=== PATIENT | male | born 1955 | race Caucasian/White ===

== ENCOUNTER 2021-02-14 21:37 | Emergency (ER) | payer MEDICARE, OTHER ==
[~2021-02-14 21:37] MED LIST: ABILIFY10 MG PO; AMBIEN CR 12.12.5 MG PO; AMBIEN10 MG PO; BENZTROPINE MESY1 MG PO; BREO ELLIPTA 11 EACH PO; CLONAZEPAM 0.50.5 MG PO; COREG12.5 MG PO; COREG25 MG PO; CYMBALTA 30MG C30 MG PO; LEVAQUIN500 MG PO; LISINOPRIL 20MG20 MG PO; LISINOPRIL40 MG PO; METRONIDAZOLE500 MG PO; MINIPRES1 MG PO; NORCO 5-325 TA1 EACH PO; PERCOCET 10-321 EACH PO; PRAVASTATIN SOD10 MG PO; SEROQUEL 100MG100 MG PO; VERAPAMIL ER120 M1 PO; ZOLPIDEM 10MG T10 MG PO
[2021-02-14 23:13] LABS: BASOPHIL 0 % (0-2); EOSINOPHIL 3.8 % (0-7); HCT 38.3 % (42.0-52.0); HGB 12.5 g/dl (13.2-18.0); LYMPHOCYTE 19.4 % (15-48); MCH 33.1 pg (25.0-31.0); MCHC 32.6 g/dL (32.0-36.0); MCV 101.3 fL (78.0-100.0); MONOCYTE 8.1 % (0-12); MPV 8.6 fL (6.0-9.5); NRBC 0; PLT 240 K/uL (150-400); RBC 3.78 M/uL (4.70-6.00); RDW 16.2 % (11.5-14.0); WBC 7.4 K/uL (4.0-10.5)
[2021-02-14 23:41] LABS: ALBUMIN 3.3 g/dL (3.4-5.0); BILIRUBIN - TOTAL 0.5 mg/dL (0.2-1.0); BUN/CREAT RATIO (CALC) 21.4 RATIO; CREATININE 0.98 mg/dL (0.67-1.17); GLOBULIN (CALCULATION) 3.4 g/dL; POTASSIUM 3.5 mmol/L (3.5-5.1); TOTAL PROTEIN 6.7 g/dL (6.4-8.2)
[2021-02-14 23:46] LABS: PRO-BNP 341 pg/mL (<125)
[2021-02-15] MEDS ORDERED: DOXYCYCLINE MO100 MG PO (01:02)
== END 2021-02-15 01:15 | disposition home or self-care (01) ==
LOC: FER 21:37
PROVIDERS: Emergency Medicine
DX: L03.116 Cellulitis of left lower limb (principal); L03.115 Cellulitis of right lower limb; I87.8 Other specified disorders of veins; I11.0 Hypertensive heart disease with heart failure; I50.9 Heart failure, unspecified; J44.9 Chronic obstructive pulmonary disease, unspecified; E78.5 Hyperlipidemia, unspecified
CPT/HCPCS: 36415; 36600; 71045; 80053; 82803; 83880; 84484; 85025; 93005

== ENCOUNTER 2021-03-25 13:51 | Inpatient (IN) | payer MEDICARE, OTHER ==
[~2021-03-25] VITALS: Ht 190.5 cm; Wt 118.4 kg
[~2021-03-25 13:51] MED LIST changes: +DOXYCYCLINE MO100 MG PO
[2021-03-25 14:49] LABS: BILIRUBIN NEGATIVE (NEGATIVE); BLOOD NEGATIVE Ery/uL (NEGATIVE); CLARITY CLEAR (CLEAR); COLOR YELLOW (YELLOW); GLUCOSE (U) NORMAL (NORMAL); LEUKOCYTES NEGATIVE Leu/uL (NEGATIVE); NITRITE NEGATIVE (NEGATIVE); PROTEIN NEGATIVE (NEGATIVE); UROBILINOGEN 0.2 mg/dL (0.2-1.0)
[2021-03-25 15:27] LABS: BASOPHIL 0.1 % (0-2); EOSINOPHIL 2.1 % (0-7); HGB 14.8 g/dl (13.2-18.0); LYMPHOCYTE 17.4 % (15-48); MCH 32.7 pg (25.0-31.0); MCHC 33.6 g/dL (32.0-36.0); MCV 97.1 fL (78.0-100.0); MONOCYTE 7.2 % (0-12); MPV 9.1 fL (6.0-9.5); NEUTROPHIL 72.8 % (41-80); NRBC 0; PLT 241 K/uL (150-400); RBC 4.53 M/uL (4.70-6.00); RDW 14.1 % (11.5-14.0); WBC 8.1 K/uL (4.0-10.5)
[2021-03-25 16:09] LABS: LACTIC ACID 1.9 mmol/L (0.4-1.9)
[2021-03-25 16:26] LABS: CORONAVIRUS 2019 SARS-COV-2 NEGATIVE (NEGATIVE); INFLUENZA A NAA NEGATIVE (NEGATIVE)
[2021-03-25 16:27] LABS: ALBUMIN 3.1 g/dL (3.4-5.0); BILIRUBIN - TOTAL 0.6 mg/dL (0.2-1.0); BUN/CREAT RATIO (CALC) 25.4 RATIO; CREATININE 1.14 mg/dL (0.67-1.17); GLOBULIN (CALCULATION) 3.4 g/dL; TOTAL PROTEIN 6.5 g/dL (6.4-8.2)
[2021-03-25 16:28] LABS: PRO-BNP 129 pg/mL (<125)
[2021-03-25 16:31] LABS: POTASSIUM 2.1 mmol/L (3.5-5.1)
[2021-03-25 20:18] LABS: BUN/CREAT RATIO (CALC) 25.7 RATIO; CREATININE 1.13 mg/dL (0.67-1.17)
[2021-03-25 20:20] LABS: POTASSIUM 2.4 mmol/L (3.5-5.1)
[2021-03-26] MEDS ORDERED: DEMADEX20 MG PO (05:26)
[2021-03-26] MEDS ORDERED: PRAMIPEXOLE DI1.5 MG PO (05:28)
[2021-03-26] MEDS ORDERED: METOLAZONE 5MG T5 M1 PO (05:29)
[2021-03-26] MEDS ORDERED: ASPIRIN EC81 M1 PO (05:31)
[2021-03-26] MEDS ORDERED: FLUOXETINE HCL20 MG PO (05:33)
[2021-03-26] MEDS ORDERED: LAMOTRIGINE200 MG PO (05:34)
[2021-03-26] MEDS ORDERED: ATORVASTATIN CA40 MG PO (05:38)
[2021-03-26] MEDS ORDERED: OMEPRAZOLE 20MG20 MG PO (05:40)
[2021-03-26 07:27] LABS: HCT 42.1 % (42.0-52.0); HGB 13.9 g/dl (13.2-18.0); MCH 32.6 pg (25.0-31.0); MCV 98.6 fL (78.0-100.0); MPV 8.9 fL (6.0-9.5); RBC 4.27 M/uL (4.70-6.00); RDW 14.3 % (11.5-14.0)
[2021-03-26 08:00] LABS: ALBUMIN 3.1 g/dL (3.4-5.0); BILIRUBIN - TOTAL 0.7 mg/dL (0.2-1.0); BUN/CREAT RATIO (CALC) 23.3 RATIO; CREATININE 0.9 mg/dL (0.67-1.17); GLOBULIN (CALCULATION) 2.8 g/dL; MAGNESIUM 2.6 mg/dL (1.8-2.4); POTASSIUM 2.6 mmol/L (3.5-5.1); TOTAL PROTEIN 5.9 g/dL (6.4-8.2)
--- NOTE | 2021-03-26 10:05 | NUR ---
03/26/21 Please consider full admit or discharge.
[2021-03-26] MEDS ORDERED: TORSEMIDE20 MG PO (10:35)
[2021-03-26] MEDS ORDERED: NEURONTIN300 MG PO (10:43)
[2021-03-26] MEDS ORDERED: ASPIRIN EC81 MG PO (10:43)
[2021-03-26] MEDS ORDERED: ZYPREXA 5MG TABL5 MG PO (10:44)
[2021-03-26] MEDS ORDERED: POTASSIUM CHLO20 ME1 PO (10:45)
[2021-03-26] MEDS ORDERED: ZOFRAN4 M1 PO (10:46)
[2021-03-26] MEDS ORDERED: VASCULERA630 MG PO (10:47)
[2021-03-26] MEDS ORDERED: PERCOCET 10-321 EACH PO (10:48)
[2021-03-26] MEDS ORDERED: COREG25 MG PO ×2 (10:51→10:55)
[2021-03-27 06:37] LABS: BASOPHIL 0.1 % (0-2); EOSINOPHIL 3.5 % (0-7); HCT 46.6 % (42.0-52.0); HGB 14.9 g/dl (13.2-18.0); LYMPHOCYTE 22.4 % (15-48); MCH 31.9 pg (25.0-31.0); MCV 99.8 fL (78.0-100.0); MONOCYTE 8.8 % (0-12); MPV 8.9 fL (6.0-9.5); NEUTROPHIL 64.6 % (41-80); NRBC 0; PLT 255 K/uL (150-400); RBC 4.67 M/uL (4.70-6.00); RDW 14.5 % (11.5-14.0); WBC 8.6 K/uL (4.0-10.5)
[2021-03-27 07:07] LABS: BUN/CREAT RATIO (CALC) 14.4 RATIO; CREATININE 1.04 mg/dL (0.67-1.17); POTASSIUM 3.2 mmol/L (3.5-5.1)
[2021-03-28 06:25] LABS: HCT 48.6 % (42.0-52.0); HGB 15.8 g/dl (13.2-18.0); MCH 32.2 pg (25.0-31.0); MCHC 32.5 g/dL (32.0-36.0); MPV 8.8 fL (6.0-9.5); RBC 4.91 M/uL (4.70-6.00); RDW 14.2 % (11.5-14.0); WBC 8.8 K/uL (4.0-10.5)
[2021-03-28 06:55] LABS: BUN/CREAT RATIO (CALC) 18.4 RATIO; C-REACTIVE PROTEIN 0.8 mg/dL (<=0.90); CREATININE 1.36 mg/dL (0.67-1.17); MAGNESIUM 1.8 mg/dL (1.8-2.4); POTASSIUM 2.6 mmol/L (3.5-5.1)
[2021-03-29 07:11] LABS: BASOPHIL 0.1 % (0-2); EOSINOPHIL 4.2 % (0-7); HCT 47.5 % (42.0-52.0); HGB 15.8 g/dl (13.2-18.0); LYMPHOCYTE 17.2 % (15-48); MCH 32.2 pg (25.0-31.0); MCHC 33.3 g/dL (32.0-36.0); MCV 96.7 fL (78.0-100.0); MONOCYTE 8.7 % (0-12); MPV 9.3 fL (6.0-9.5); NEUTROPHIL 68.9 % (41-80); NRBC 0; PLT 246 K/uL (150-400); RBC 4.91 M/uL (4.70-6.00); RDW 13.8 % (11.5-14.0)
[2021-03-29 07:36] LABS: BUN/CREAT RATIO (CALC) 22.1 RATIO; C-REACTIVE PROTEIN 0.7 mg/dL (<=0.90); CREATININE 1.22 mg/dL (0.67-1.17); MAGNESIUM 2.2 mg/dL (1.8-2.4); VANCOMYCIN, TROUGH 18.4 ug/mL (10-20)
[2021-03-29 07:42] LABS: POTASSIUM 2.3 mmol/L (3.5-5.1)
--- NOTE | 2021-03-29 15:10 | NUR ---
03/29/21 Mr. Iraheta lives with his son and [id number]. He has a cane, pulse-ox, 02 at 3 liter, and portable tanks. According to Mr. Iraheta, Dr. Chairez has ordered him an Indogen. - Mr. Iraheta will require IV antibiotics after discharge. A referral was made to [facility] and [facility] per patient choice; affliation explained. - Waiting on return call from [facility] re: cost.
--- NOTE | 2021-03-29 16:57 | NUR ---
03/29/21 1615 [facility] ORDERED FOR PATIENT TO GET IV ANTIBIOTICS AT HOME BY [facility]. PROCEDURE EXPLAINED TO PATIENT. PT PREPPED AND DRAPED IN STERILE FASHION. THE PT'S LEFT UPPER ARM BASILIC VEIN WAS VIAUALIZED USING THE [email or web address] US MACHINE. A 21 GAUGE GUIDE NEEDLE WAS USED. GOOD BLOOD RETURN WAS NOTED. THE GUIDE WIRE THREADED ASILY. THE NEEDLE WAS REMOVED AND THE MIDLINE CATHETER WAS PLACED OVER THE WIRE. THE WIRE AND SHEATH WERE REMOVED. GOOD BLOOD RETURN WAS NOTED. A CONNECTOR WAS FLUSHED AND PLACED OVER THE END OF THE CATHETER. AT STAT LOCK WAS PLACED ON THE CATHETER AND A BIOPATCH WAS PLACED ON TOP OF THE INSERTION SITE. A STERILE TEGADERM WAS PLACED OVER THE MIDLINE CATHETER. GOOD FOR 29 DAYS. THIS IS NOT A CENTRAL LINE. REPORT WAS GIVEN TO IRINEO TABOR R.N. ON MED/SURG. THE PATIENT TOLERATED TJE PROCEDURE WELL. PT'S BED WAS LOWERED TO THE GROUND, SIDERAILS UP X 2, CALL LIGHT WITHIN REACH.
[2021-03-29 17:20] LABS: BUN/CREAT RATIO (CALC) 21.3 RATIO; CREATININE 1.27 mg/dL (0.67-1.17); POTASSIUM 2.5 mmol/L (3.5-5.1)
[2021-03-30 07:41] LABS: BUN/CREAT RATIO (CALC) 26.8 RATIO; CREATININE 1.12 mg/dL (0.67-1.17)
[2021-03-30] MEDS ORDERED: AUGMENTIN 875-1 EACH PO (10:42)
--- NOTE | 2021-03-30 13:20 | NUR ---
03/30/21 IV antibiotic home infusion has been arranged through [facility]. Patient was informed of his cost of $136.00 a week and is in agreement. [facility] is on diversion. [facility] accepted patient. Family informed. - Report given to Dr. Thompson and MS Nanette RN.
== END 2021-03-30 15:06 | disposition home health service (06) | DRG 871 ==
LOC: FER 13:51 → FMS 19:44
PROVIDERS: Emergency Medicine; Internal Medicine Cardiovascular Disease; Nurse Practitioner; ADMIT Internal Medicine
PROC: 05HY33Z Insertion of Infusion Device into Upper Vein, Percutaneous Approach (ICD-10-PCS; principal; 2021-03-29)
DX: A41.9 Sepsis, unspecified organism (principal); J96.21 Acute and chronic respiratory failure with hypoxia; G93.41 Metabolic encephalopathy; L03.116 Cellulitis of left lower limb; R65.20 Severe sepsis without septic shock; B35.6 Tinea cruris; G47.33 Obstructive sleep apnea (adult) (pediatric); J43.9 Emphysema, unspecified; J84.10 Pulmonary fibrosis, unspecified; Z20.822 Contact with and (suspected) exposure to COVID-19; K21.9 Gastro-esophageal reflux disease without esophagitis; G89.29 Other chronic pain; M54.9 Dorsalgia, unspecified; F03.90 Unspecified dementia, unspecified severity, without behavioral disturbance, psychotic disturbance, mood disturbance, and anxiety; I10 Essential (primary) hypertension; E78.5 Hyperlipidemia, unspecified; E87.6 Hypokalemia; E87.70 Fluid overload, unspecified; F32.9 Major depressive disorder, single episode, unspecified; I87.8 Other specified disorders of veins; I73.9 Peripheral vascular disease, unspecified; I71.9 Aortic aneurysm of unspecified site, without rupture; Z99.81 Dependence on supplemental oxygen; Z87.891 Personal history of nicotine dependence; Z90.49 Acquired absence of other specified parts of digestive tract; Z90.89 Acquired absence of other organs; Z98.890 Other specified postprocedural states
CPT/HCPCS: 36415; 36600; 70450; 71045; 71046; 71260; 72100; 73020; 80048; 80053; 80202; 81003; 82150; 82803; 83036; 83605; 83735; 83880; 84145; 84484; 85025; 86140; 87040; 87088; 93005; 93970; 94760; 97162; 97166; 97530; 97530-GP; 97535; C1751; G0378; J1642; J1650; J2543; J2930; J3370; J3475; J7040; J7050; Q9967; U0002

== ENCOUNTER 2021-04-25 21:04 | Day surgery (SDCO) | payer MEDICARE, OTHER ==
[~2021-04-25] VITALS: Ht 175.3 cm; Wt 120.2 kg
[~2021-04-25 21:04] MED LIST changes: +ASPIRIN EC81 M1 PO; +ASPIRIN EC81 MG PO; +ATORVASTATIN CA40 MG PO; +AUGMENTIN 875-1 EACH PO; +DEMADEX20 MG PO; +FLUOXETINE HCL20 MG PO; +LAMOTRIGINE200 MG PO; +METOLAZONE 5MG T5 M1 PO; +NEURONTIN300 MG PO; +OMEPRAZOLE 20MG20 MG PO; +POTASSIUM CHLO20 ME1 PO; +PRAMIPEXOLE DI1.5 MG PO; +TORSEMIDE20 MG PO; +VASCULERA630 MG PO; +ZOFRAN4 M1 PO; +ZYPREXA 5MG TABL5 MG PO
[2021-04-25 23:56] LABS: BASOPHIL 0.1 % (0-2); EOSINOPHIL 1.8 % (0-7); HCT 45.1 % (42.0-52.0); HGB 14.9 g/dl (13.2-18.0); LYMPHOCYTE 15.1 % (15-48); MCH 31.7 pg (25.0-31.0); MONOCYTE 7.5 % (0-12); NEUTROPHIL 74.9 % (41-80); NRBC 0; PLT 309 K/uL (150-400); RDW 14.2 % (11.5-14.0); WBC 12.3 K/uL (4.0-10.5)
[2021-04-26 00:11] LABS: BUN/CREAT RATIO (CALC) 27.4 RATIO; CREATININE 0.95 mg/dL (0.67-1.17)
[2021-04-26 00:21] LABS: POTASSIUM 2.4 mmol/L (3.5-5.1)
[2021-04-26] MEDS ORDERED: ELIQUIS5 MG PO (16:44)
[2021-04-26 17:10] LABS: BUN/CREAT RATIO (CALC) 20.5 RATIO; CREATININE 0.78 mg/dL (0.67-1.17); POTASSIUM 3.5 mmol/L (3.5-5.1)
[2021-04-26] MEDS ORDERED: K-DUR20 MEQ PO (17:29)
--- NOTE | 2021-04-27 15:15 | NUR ---
Patient was reported to be stating he was leaving AMA. The ED physician discharge patient with an rx for Eliquis before inquiry was made re: insurance coverage.
--- NOTE | 2021-04-27 15:20 | NUR ---
ADVISED BY TATIANA VÁSQUEZ, THAT PT. NEEDED A PREAUTH FOR HIS ELIQUIS AND THAT HE WAS DC FROM THE ED 04/27/21. FAHAD STATED THAT THE PT CALLED ALEKSANDRA BRYANT AND TOLD HER THAT HE DID NOT GET HIS ELIQUIS IT NEEDED A PREAUTH. TC TO MR. MARTINEZ AT . HE ADVISED THAT HE WAS DISCHARGED BY DR. DELEON IN THE ED ON 04/26/21 HE NEEDED A PREAUTH. MR. MARTINEZ STATED THAT DR. DELEON WOULD NOT DO THE PREAUTH PT. HAD ALREADY LEFT AND IT WAS NOT AN EMERGENCY AND THAT HE NEEDED TO SEE HIS PRIMARY PHYSICIAN. TC TO [facility]. MANNY EXPLAINED THAT DR. DELEON SIGNED THE SCRIPT AND I NEEDED A DOCTOR TO PLACE ON THE AUTHORIZATION REQUEST. MANNY CALLED BACK AND STATED THAT DR. CHELA CROSS ADVISED THAT WE COULD USE HIS NAME FOR THE AUTHORIZATION . TC TO [employer] TO GET THE DRUG COVERAGE INFORMATION. SUBMITTED THE REQUEST FOR PREAUTH THROUGH [facility].
--- NOTE | 2021-04-27 16:50 | NUR ---
TC TO LINDA GUAJARDO, [facility] STATD THAT PT KAROLYN DID NOT REQUIRE A PREAUTH, THE COPAY IS $235.00 THIS IS DUE TO PT NOT MEETING HIS DECUCTIBLE. TC TO Adelita JUAN. ADVISED HIM OF THE INFORMATION FROM [facility]. [facility]. TC TO MANNY ADVISED HER OF THE ABOVE INFORMATION.
== END 2021-04-26 17:57 | disposition home or self-care (01) ==
LOC: FER 21:04 → FOFB 04-26 05:48
PROVIDERS: Internal Medicine; Nurse Practitioner Family; ADMIT Internal Medicine
DX: M86.9 Osteomyelitis, unspecified (principal); M84.475A Pathological fracture, left foot, initial encounter for fracture; I10 Essential (primary) hypertension; I26.99 Other pulmonary embolism without acute cor pulmonale; J43.9 Emphysema, unspecified; J98.11 Atelectasis; I25.10 Atherosclerotic heart disease of native coronary artery without angina pectoris; E78.5 Hyperlipidemia, unspecified; K76.0 Fatty (change of) liver, not elsewhere classified; G47.33 Obstructive sleep apnea (adult) (pediatric); K21.9 Gastro-esophageal reflux disease without esophagitis; K57.90 Diverticulosis of intestine, part unspecified, without perforation or abscess without bleeding; R19.7 Diarrhea, unspecified; F32.9 Major depressive disorder, single episode, unspecified; M54.9 Dorsalgia, unspecified; G89.29 Other chronic pain; Z20.822 Contact with and (suspected) exposure to COVID-19; Z86.79 Personal history of other diseases of the circulatory system; Z90.49 Acquired absence of other specified parts of digestive tract; Z87.891 Personal history of nicotine dependence
CPT/HCPCS: 36415; 71275; 73630; 73700; 80048; 83880; 84484; 85025; 85379; 93005; 93970; 96372; G0378; J0713; J1170; J1650; J2405; J3370; J3475; J3480; J7030; J7050; Q9967; U0002

== ENCOUNTER 2021-06-05 19:28 | Emergency (ER) | payer MEDICARE, OTHER ==
[~2021-06-05 19:28] MED LIST changes: +ELIQUIS5 MG PO; +K-DUR20 MEQ PO
[2021-06-05 20:00] LABS: BASOPHIL 0.2 % (0-2); EOSINOPHIL 3.7 % (0-7); HCT 40.7 % (42.0-52.0); HGB 12.6 g/dl (13.2-18.0); LYMPHOCYTE 22.2 % (15-48); MONOCYTE 8.5 % (0-12); MPV 8.7 fL (6.0-9.5); NEUTROPHIL 64.8 % (41-80); NRBC 0; PLT 299 K/uL (150-400); RBC 4.07 M/uL (4.70-6.00); RDW 16.5 % (11.5-14.0); WBC 8.1 K/uL (4.0-10.5)
[2021-06-05 20:15] LABS: BUN/CREAT RATIO (CALC) 15.7 RATIO; CREATININE 0.89 mg/dL (0.67-1.17); MAGNESIUM 2.3 mg/dL (1.8-2.4); PHOSPHORUS 2.4 mg/dL (2.6-4.7); POTASSIUM 4.3 mmol/L (3.5-5.1)
[2021-06-05 20:25] LABS: PRO-BNP 204 pg/mL (<125)
[2021-06-05] MEDS ORDERED: BACTRIM DS TAB1 EACH PO (21:23)
== END 2021-06-05 21:56 | disposition home or self-care (01) ==
LOC: FER 19:28
PROVIDERS: Emergency Medicine
DX: I11.0 Hypertensive heart disease with heart failure (principal); I50.9 Heart failure, unspecified; M79.675 Pain in left toe(s); R60.0 Localized edema; I25.10 Atherosclerotic heart disease of native coronary artery without angina pectoris
CPT/HCPCS: 36415; 71045; 73560; 73630; 80048; 83735; 83880; 84100; 84484; 85025; 93005; J1940

== ENCOUNTER 2021-07-09 01:38 | Inpatient (IN) | payer MEDICARE, OTHER ==
[~2021-07-09] VITALS: Ht 175 cm; Wt 120.2 kg
[~2021-07-09 01:38] MED LIST changes: +BACTRIM DS TAB1 EACH PO; +LAMICTAL (BLUE)25 MG PO; +METFORMIN HCL500 MG PO; +OXYCODONE HCL10 MG PO; +STIOLTO INHALER INH
[2021-07-09 01:52] LABS: BASOPHIL 0.2 % (0-2); EOSINOPHIL 0 % (0-7); HCT 39.6 % (42.0-52.0); HGB 12.7 g/dl (13.2-18.0); LYMPHOCYTE 7.4 % (15-48); MCH 30.9 pg (25.0-31.0); MCHC 32.1 g/dL (32.0-36.0); MCV 96.4 fL (78.0-100.0); MPV 9.6 fL (6.0-9.5); NEUTROPHIL 80.2 % (41-80); NRBC 0; PLT 333 K/uL (150-400); RBC 4.11 M/uL (4.70-6.00); RDW 14.8 % (11.5-14.0); WBC 11.5 K/uL (4.0-10.5)
[2021-07-09 02:14] LABS: ALBUMIN 2.4 g/dL (3.4-5.0); BILIRUBIN - TOTAL 0.4 mg/dL (0.2-1.0); BUN/CREAT RATIO (CALC) 34.6 RATIO; CREATININE 1.04 mg/dL (0.67-1.17); GLOBULIN (CALCULATION) 3.6 g/dL; POTASSIUM 4.2 mmol/L (3.5-5.1)
[2021-07-09 02:32] LABS: PRO-BNP 395 pg/mL (<125)
[2021-07-09 04:34] LABS: C-REACTIVE PROTEIN 0.2 mg/dL (<=0.90); MAGNESIUM 2.2 mg/dL (1.8-2.4)
[2021-07-10 04:20] LABS: BASOPHIL 0.4 % (0-2); EOSINOPHIL 0 % (0-7); HCT 38.7 % (42.0-52.0); HGB 12.3 g/dl (13.2-18.0); LYMPHOCYTE 5.5 % (15-48); MCH 30.9 pg (25.0-31.0); MCHC 31.8 g/dL (32.0-36.0); MCV 97.2 fL (78.0-100.0); MONOCYTE 6.5 % (0-12); MPV 9.7 fL (6.0-9.5); NRBC 0; PLT 345 K/uL (150-400); RBC 3.98 M/uL (4.70-6.00); RDW 14.7 % (11.5-14.0); WBC 14.8 K/uL (4.0-10.5)
[2021-07-10 04:30] LABS: NEUTROPHIL 81.9 % (41-80)
[2021-07-10 05:31] LABS: BUN/CREAT RATIO (CALC) 31.9 RATIO; CREATININE 0.94 mg/dL (0.67-1.17); MAGNESIUM 2.3 mg/dL (1.8-2.4); POTASSIUM 4.7 mmol/L (3.5-5.1)
[2021-07-11 05:59] LABS: BASOPHIL 0.5 % (0-2); EOSINOPHIL 0.1 % (0-7); HCT 40.2 % (42.0-52.0); HGB 12.7 g/dl (13.2-18.0); LYMPHOCYTE 6.3 % (15-48); MCH 30.9 pg (25.0-31.0); MCHC 31.6 g/dL (32.0-36.0); MCV 97.8 fL (78.0-100.0); MPV 9.9 fL (6.0-9.5); NRBC 0.1; PLT 355 K/uL (150-400); RBC 4.11 M/uL (4.70-6.00); RDW 14.9 % (11.5-14.0)
[2021-07-11 06:39] LABS: ALBUMIN 2.4 g/dL (3.4-5.0); BILIRUBIN - TOTAL 0.4 mg/dL (0.2-1.0); BUN/CREAT RATIO (CALC) 35.1 RATIO; CREATININE 0.97 mg/dL (0.67-1.17); GLOBULIN (CALCULATION) 3.6 g/dL
--- NOTE | 2021-07-11 14:09 | NUR ---
07/11/21 Mr. Iraheta lives at home with son, the son's GF, and her 8 y/o. [facility] has been notified of admission via [facility]. He has a cane and 02 at 5 L oximizer. Mr. Iraheta reported that the concentrator at home would only go to 4L. [facility] reports that the concentrator went up to 5L. However, they will trade out the concentrator with one that goes to 10 L.
[2021-07-11] MEDS ORDERED: ELIQUIS5 MG PO (14:54)
== END 2021-07-11 16:40 | disposition home health service (06) | DRG 871 ==
LOC: FER 01:38 → FTCU 03:02
PROVIDERS: Emergency Medicine; Internal Medicine; Nurse Practitioner; ADMIT Internal Medicine
PROC: 8E0ZXY6 Isolation (ICD-10-PCS; principal; 2021-07-09)
PROC: XW033E5 Introduction of Remdesivir Anti-infective into Peripheral Vein, Percutaneous Approach, New Technology Group 5 (ICD-10-PCS; 2021-07-09)
PROC: XW0DXM6 Introduction of Baricitinib into Mouth and Pharynx, External Approach, New Technology Group 6 (ICD-10-PCS; 2021-07-09)
DX: A41.89 Other specified sepsis (principal); U07.1 COVID-19; J12.82 Pneumonia due to coronavirus disease 2019; J96.21 Acute and chronic respiratory failure with hypoxia; J96.02 Acute respiratory failure with hypercapnia; J15.9 Unspecified bacterial pneumonia; J44.0 Chronic obstructive pulmonary disease with (acute) lower respiratory infection; E11.9 Type 2 diabetes mellitus without complications; I11.0 Hypertensive heart disease with heart failure; I50.9 Heart failure, unspecified; G47.33 Obstructive sleep apnea (adult) (pediatric); E78.5 Hyperlipidemia, unspecified; G89.29 Other chronic pain; K21.9 Gastro-esophageal reflux disease without esophagitis; F39 Unspecified mood [affective] disorder; Z79.84 Long term (current) use of oral hypoglycemic drugs; Z79.01 Long term (current) use of anticoagulants; Z79.82 Long term (current) use of aspirin; Z79.899 Other long term (current) drug therapy; Z86.718 Personal history of other venous thrombosis and embolism; Z90.49 Acquired absence of other specified parts of digestive tract; Z90.89 Acquired absence of other organs; Z98.890 Other specified postprocedural states; Y95 Nosocomial condition; Z87.891 Personal history of nicotine dependence; Z80.0 Family history of malignant neoplasm of digestive organs; Z82.49 Family history of ischemic heart disease and other diseases of the circulatory system
CPT/HCPCS: 36415; 36600; 71045; 71275; 80048; 80053; 80202; 82728; 82803; 82962; 83605; 83615; 83735; 83880; 84145; 84484; 85025; 85379; 86140; 93005; 94010; 94640; C9399; J1100; J2543; J3370; J7030; J7050; Q9967; U0002

== ENCOUNTER 2021-08-16 12:18 | Emergency (ER) | payer MEDICARE, OTHER | END 2021-08-16 13:58 | disposition left against medical advice (07) | LOC: FER 12:18 | DX: L08.9 Local infection of the skin and subcutaneous tissue, unspecified (principal); Z53.21 Procedure and treatment not carried out due to patient leaving prior to being seen by health care provider ==

== ENCOUNTER 2021-10-23 00:21 | Inpatient (IN) | payer MEDICARE, OTHER ==
[~2021-10-23] VITALS: Ht 175.3 cm; Wt 129.0 kg
[2021-10-23 00:44] LABS: BASOPHIL 0.1 % (0-2); EOSINOPHIL 0.5 % (0-7); HCT 38.6 % (42.0-52.0); HGB 11.7 g/dl (13.2-18.0); LYMPHOCYTE 10.3 % (15-48); MCH 28.7 pg (25.0-31.0); MCHC 30.3 g/dL (32.0-36.0); MCV 94.8 fL (78.0-100.0); MONOCYTE 7.4 % (0-12); MPV 9.3 fL (6.0-9.5); NEUTROPHIL 81.2 % (41-80); NRBC 0.1; PLT 358 K/uL (150-400); RBC 4.07 M/uL (4.70-6.00); RDW 18.1 % (11.5-14.0); WBC 14.2 K/uL (4.0-10.5)
[2021-10-23 00:55] LABS: INR 1.78 (0.9-1.2); PROTHROMBIN TIME 19.9 SECONDS (11.8-13.4)
[2021-10-23 00:56] LABS: PTT 39.3 SECONDS (24.4-34.7)
[2021-10-23 01:05] LABS: ALBUMIN 3.2 g/dL (3.4-5.0); BILIRUBIN - TOTAL 0.5 mg/dL (0.2-1.0); BUN/CREAT RATIO (CALC) 32.2 RATIO; CREATININE 1.21 mg/dL (0.67-1.17); POTASSIUM 4.3 mmol/L (3.5-5.1); TOTAL PROTEIN 7.2 g/dL (6.4-8.2)
[2021-10-23 01:14] LABS: LACTIC ACID 2.1 mmol/L (0.4-1.9)
[2021-10-23 01:20] LABS: CORONAVIRUS 2019 SARS-COV-2 NEGATIVE (NEGATIVE); INFLUENZA A NAA NEGATIVE (NEGATIVE)
[2021-10-23] MEDS ORDERED: METFORMIN HCL500 MG PO (07:29)
[2021-10-23] MEDS ORDERED: XARELTO15 MG PO ×2 (07:30)
[2021-10-23] MEDS ORDERED: PROZAC20 MG PO (07:31)
[2021-10-23] MEDS ORDERED: MINIPRESS5 MG PO (07:31)
[2021-10-23] MEDS ORDERED: ALDACTONE50 MG PO (07:32)
[2021-10-23] MEDS ORDERED: LAMICTAL100 MG PO (07:32)
[2021-10-23] MEDS ORDERED: MAG-OXIDE 400M400 MG PO (07:33)
[2021-10-23] MEDS ORDERED: PRILOSEC20 MG PO (07:33)
[2021-10-23] MEDS ORDERED: LYRICA 50MG CAP50 MG PO (07:34)
[2021-10-23] MEDS ORDERED: [UNRECOGNIZED DRUG - MIXTURE] (16:22)
[2021-10-24 06:06] LABS: BASOPHIL 0.1 % (0-2); EOSINOPHIL 0.1 % (0-7); HCT 34.4 % (42.0-52.0); HGB 10.5 g/dl (13.2-18.0); LYMPHOCYTE 5.2 % (15-48); MCH 28.6 pg (25.0-31.0); MCHC 30.5 g/dL (32.0-36.0); MCV 93.7 fL (78.0-100.0); MONOCYTE 3.7 % (0-12); MPV 9.5 fL (6.0-9.5); NRBC 0; PLT 332 K/uL (150-400); RBC 3.67 M/uL (4.70-6.00); RDW 17.7 % (11.5-14.0); WBC 12.2 K/uL (4.0-10.5)
[2021-10-24 06:22] LABS: NEUTROPHIL 90.2 % (41-80)
[2021-10-24 06:35] LABS: C-REACTIVE PROTEIN 3.6 mg/dL (<=0.90); MAGNESIUM 2.3 mg/dL (1.8-2.4); PHOSPHORUS 3.4 mg/dL (2.6-4.7); POTASSIUM 4.3 mmol/L (3.5-5.1)
--- NOTE | 2021-10-24 12:51 | NUR ---
patient triggered for nutrition screen 2' MST of 5. H&P denies wt loss or issues with p.o. intake. no wt loss noted in review of EMR visits; patient eating 100%. nutrition services not warranted at this time.
--- NOTE | 2021-10-24 17:26 | NUR ---
10/24/21 Mr. Iraheta and his son share a home together. He has home 02 at 3 L, portables, and a cane from [facility]. Indira Pires, [facility] is PCP. [facility] is current and have been notified of admission via [email or web address].
[2021-10-25 06:01] LABS: BASOPHIL 0.1 % (0-2); EOSINOPHIL 0 % (0-7); HCT 34.6 % (42.0-52.0); HGB 10.5 g/dl (13.2-18.0); LYMPHOCYTE 5.4 % (15-48); MCH 28.6 pg (25.0-31.0); MCHC 30.3 g/dL (32.0-36.0); MCV 94.3 fL (78.0-100.0); MONOCYTE 3.8 % (0-12); MPV 9.3 fL (6.0-9.5); NEUTROPHIL 89.7 % (41-80); NRBC 0; PLT 351 K/uL (150-400); RBC 3.67 M/uL (4.70-6.00); RDW 17.3 % (11.5-14.0); RETICULOCYTE COUNT 3.3 % (1.0-2.0); WBC 13.9 K/uL (4.0-10.5)
[2021-10-25 06:26] LABS: IRON % SATURATION 6.5 %SAT (20-50)
[2021-10-25 07:04] LABS: BUN/CREAT RATIO (CALC) 29.9 RATIO; C-REACTIVE PROTEIN 0.7 mg/dL (<=0.90); CREATININE 0.97 mg/dL (0.67-1.17); FOLIC ACID (SERUM) 11.9 ng/mL (8.6-58.9); POTASSIUM 4.7 mmol/L (3.5-5.1)
[2021-10-26 06:20] LABS: BASOPHIL 0.1 % (0-2); EOSINOPHIL 0 % (0-7); HCT 36.1 % (42.0-52.0); HGB 10.9 g/dl (13.2-18.0); LYMPHOCYTE 6.1 % (15-48); MCH 28.1 pg (25.0-31.0); MCHC 30.2 g/dL (32.0-36.0); MONOCYTE 4.2 % (0-12); MPV 9.4 fL (6.0-9.5); NEUTROPHIL 88.4 % (41-80); NRBC 0; PLT 345 K/uL (150-400); RBC 3.88 M/uL (4.70-6.00); RDW 17.1 % (11.5-14.0); WBC 10.2 K/uL (4.0-10.5)
[2021-10-26 07:03] LABS: BUN 42 mg/dL (7-18); BUN/CREAT RATIO (CALC) 38.5 RATIO; CHLORIDE 90 mmol/L (98-107); CO2 (BICARBONATE) 28 mmol/L (21-32); CREATININE 1.09 mg/dL (0.67-1.17); GLUCOSE 399 mg/dL (74-106); POTASSIUM 4.6 mmol/L (3.5-5.1)
[2021-10-26 07:04] LABS: C-REACTIVE PROTEIN < 0.20 mg/dL (<=0.90)
[2021-10-27 05:58] LABS: BASOPHIL 0.2 % (0-2); EOSINOPHIL 0 % (0-7); HCT 37.7 % (42.0-52.0); HGB 11.6 g/dl (13.2-18.0); LYMPHOCYTE 8.2 % (15-48); MCH 28.5 pg (25.0-31.0); MCHC 30.8 g/dL (32.0-36.0); MCV 92.6 fL (78.0-100.0); MONOCYTE 4.8 % (0-12); MPV 9.2 fL (6.0-9.5); NEUTROPHIL 83.7 % (41-80); NRBC 0; PLT 358 K/uL (150-400); RBC 4.07 M/uL (4.70-6.00); RDW 16.7 % (11.5-14.0); WBC 11.1 K/uL (4.0-10.5)
[2021-10-27 06:31] LABS: BUN/CREAT RATIO (CALC) 33.3 RATIO; CREATININE 1.35 mg/dL (0.67-1.17); POTASSIUM 4.1 mmol/L (3.5-5.1)
[2021-10-27] MEDS ORDERED: SPIRIVA 18MCG18 MCG INH (09:29)
[2021-10-27] MEDS ORDERED: VENTOLIN HFA IN18 GM INH (09:29)
[2021-10-27] MEDS ORDERED: PREDNISONE 20MG20 MG PO (09:29)
[2021-10-27] MEDS ORDERED: AUGMENTIN 500-1 EACH PO (09:29)
[2021-10-27] MEDS ORDERED: SYMBICORT 80-10.2 GM INH (09:29)
[2021-10-27] MEDS ORDERED: POTASSIUM CHLO20 ME1 PO (09:29)
[2021-10-27] MEDS ORDERED: FLORANEX TABLE1 EACH PO (09:29)
[2021-10-27] MEDS ORDERED: XARELTO15 MG PO (09:29)
--- NOTE | 2021-10-27 15:48 | NUR ---
10/27 [facility] was notified of discharge.
== END 2021-10-27 11:30 | disposition home or self-care (01) | DRG 871 ==
LOC: FER 00:21 → FTCU 05:39
PROVIDERS: Family Medicine; Internal Medicine; ADMIT Internal Medicine
DX: A41.9 Sepsis, unspecified organism (principal); J18.0 Bronchopneumonia, unspecified organism; J96.21 Acute and chronic respiratory failure with hypoxia; I50.33 Acute on chronic diastolic (congestive) heart failure; J44.1 Chronic obstructive pulmonary disease with (acute) exacerbation; J44.0 Chronic obstructive pulmonary disease with (acute) lower respiratory infection; N17.9 Acute kidney failure, unspecified; E87.1 Hypo-osmolality and hyponatremia; K56.7 Ileus, unspecified; Z68.41 Body mass index [BMI] 40.0-44.9, adult; R65.20 Severe sepsis without septic shock; Z20.822 Contact with and (suspected) exposure to COVID-19; E66.01 Morbid (severe) obesity due to excess calories; I11.0 Hypertensive heart disease with heart failure; E78.5 Hyperlipidemia, unspecified; G47.33 Obstructive sleep apnea (adult) (pediatric); K21.9 Gastro-esophageal reflux disease without esophagitis; F32.A Depression, unspecified; F41.9 Anxiety disorder, unspecified; E11.9 Type 2 diabetes mellitus without complications; I25.10 Atherosclerotic heart disease of native coronary artery without angina pectoris; Z86.16 Personal history of COVID-19; Z99.81 Dependence on supplemental oxygen; Z79.01 Long term (current) use of anticoagulants; Z79.82 Long term (current) use of aspirin; Z79.84 Long term (current) use of oral hypoglycemic drugs; Z79.899 Other long term (current) drug therapy; Z90.49 Acquired absence of other specified parts of digestive tract; Z89.422 Acquired absence of other left toe(s); Z87.891 Personal history of nicotine dependence; Z80.0 Family history of malignant neoplasm of digestive organs
CPT/HCPCS: 36415; 36600; 71045; 71275; 80048; 80053; 82607; 82746; 82803; 82962; 83036; 83540; 83550; 83605; 83735; 83880; 84100; 84145; 84484; 85025; 85610; 85730; 86140; 87040; 93005; 94010; 94640; 94668; 94760; 94762; J1100; J1815; J1940; J2405; J2543; J2920; J2930; J3360; J7030; J7512; Q9967; U0002

== ENCOUNTER 2021-11-11 11:58 | Day surgery (SDCO) | payer MEDICARE, OTHER ==
[~2021-11-11] VITALS: Ht 175.3 cm; Wt 127.2 kg
[~2021-11-11 11:58] MED LIST changes: +ALDACTONE50 MG PO; +AUGMENTIN 500-1 EACH PO; +FLORANEX TABLE1 EACH PO; +LAMICTAL100 MG PO; +LYRICA 50MG CAP50 MG PO; +MAG-OXIDE 400M400 MG PO; +MINIPRESS5 MG PO; +PREDNISONE 20MG20 MG PO; +PRILOSEC20 MG PO; +PROZAC20 MG PO; +SPIRIVA 18MCG18 MCG INH; +SYMBICORT 80-10.2 GM INH; +VENTOLIN HFA IN18 GM INH; +XARELTO15 MG PO; +[UNRECOGNIZED DRUG - MIXTURE]
[2021-11-11 13:24] LABS: BASOPHIL 0 % (0-2); EOSINOPHIL 1.1 % (0-7); HCT 34.4 % (42.0-52.0); HGB 10.6 g/dl (13.2-18.0); LYMPHOCYTE 12.4 % (15-48); MCH 27.8 pg (25.0-31.0); MCHC 30.8 g/dL (32.0-36.0); MCV 90.3 fL (78.0-100.0); MONOCYTE 6.9 % (0-12); MPV 9.2 fL (6.0-9.5); NEUTROPHIL 78.8 % (41-80); NRBC 0; PLT 319 K/uL (150-400); RBC 3.81 M/uL (4.70-6.00); RDW 17.4 % (11.5-14.0); WBC 8.7 K/uL (4.0-10.5)
[2021-11-11 13:29] LABS: INR 2.48 (0.9-1.2); PROTHROMBIN TIME 25.9 SECONDS (11.8-13.4); PTT 33.3 SECONDS (24.4-34.7)
[2021-11-11 13:35] LABS: IRON % SATURATION 7.7 %SAT (20-50)
[2021-11-11 13:42] LABS: ALBUMIN 3.5 g/dL (3.4-5.0); BILIRUBIN - TOTAL 0.5 mg/dL (0.2-1.0); CREATININE 1.15 mg/dL (0.67-1.17); GLOBULIN (CALCULATION) 3.8 g/dL; MAGNESIUM 2.2 mg/dL (1.8-2.4); POTASSIUM 3.8 mmol/L (3.5-5.1); TOTAL PROTEIN 7.3 g/dL (6.4-8.2)
[2021-11-11 13:44] LABS: LACTIC ACID 3.1 mmol/L (0.4-1.9)
[2021-11-11 14:02] LABS: BILIRUBIN NEGATIVE (NEGATIVE); BLOOD NEGATIVE Ery/uL (NEGATIVE); CLARITY CLEAR (CLEAR); COLOR YELLOW (YELLOW); GLUCOSE (U) NORMAL (NORMAL); LEUKOCYTES NEGATIVE Leu/uL (NEGATIVE); NITRITE NEGATIVE (NEGATIVE); PROTEIN NEGATIVE (NEGATIVE); UROBILINOGEN 0.2 mg/dL (0.2-1.0); pH 5.5 (5.0-9.0)
[2021-11-12 05:41] LABS: BASOPHIL 0.1 % (0-2); EOSINOPHIL 1.8 % (0-7); HCT 31.6 % (42.0-52.0); HGB 9.7 g/dl (13.2-18.0); LYMPHOCYTE 14.6 % (15-48); MCH 27.6 pg (25.0-31.0); MCHC 30.7 g/dL (32.0-36.0); MCV 89.8 fL (78.0-100.0); MONOCYTE 7.9 % (0-12); MPV 9.3 fL (6.0-9.5); NRBC 0; PLT 264 K/uL (150-400); RBC 3.52 M/uL (4.70-6.00); RDW 17.3 % (11.5-14.0); WBC 8.3 K/uL (4.0-10.5)
[2021-11-12 06:03] LABS: BUN/CREAT RATIO (CALC) 25.5 RATIO; CREATININE 0.98 mg/dL (0.67-1.17); POTASSIUM 3.2 mmol/L (3.5-5.1)
--- NOTE | 2021-11-12 11:06 | NUR ---
11/12/21 Please consider discharge or full admit. Thank You.
[2021-11-13 05:44] LABS: BASOPHIL 0.1 % (0-2); EOSINOPHIL 2.3 % (0-7); HCT 35.3 % (42.0-52.0); HGB 10.6 g/dl (13.2-18.0); MCH 27.3 pg (25.0-31.0); MONOCYTE 7.8 % (0-12); MPV 8.8 fL (6.0-9.5); NEUTROPHIL 71.8 % (41-80); NRBC 0; PLT 280 K/uL (150-400); RBC 3.88 M/uL (4.70-6.00); RDW 17.5 % (11.5-14.0)
[2021-11-13 06:00] LABS: BUN/CREAT RATIO (CALC) 17.2 RATIO; CREATININE 0.99 mg/dL (0.67-1.17); POTASSIUM 4.3 mmol/L (3.5-5.1)
[2021-11-13] MEDS ORDERED: FOLIC ACID1 MG PO (10:45)
[2021-11-13] MEDS ORDERED: POTASSIUM CHLO20 ME1 PO (10:45)
[2021-11-13] MEDS ORDERED: MAG-OXIDE 400M400 MG PO (10:45)
== END 2021-11-13 11:45 | disposition home or self-care (01) ==
LOC: FER 11:58 → FTCU 16:51
PROVIDERS: Emergency Medicine; ADMIT Family Medicine
DX: R55 Syncope and collapse (principal); E79.0 Hyperuricemia without signs of inflammatory arthritis and tophaceous disease; R25.2 Cramp and spasm; E11.22 Type 2 diabetes mellitus with diabetic chronic kidney disease; N18.2 Chronic kidney disease, stage 2 (mild); E87.1 Hypo-osmolality and hyponatremia; D53.9 Nutritional anemia, unspecified; I50.9 Heart failure, unspecified; J44.9 Chronic obstructive pulmonary disease, unspecified; E61.1 Iron deficiency; Z20.822 Contact with and (suspected) exposure to COVID-19
CPT/HCPCS: 36415; 70450; 80048; 80053; 81003; 82962; 83540; 83550; 83605; 83735; 83880; 84145; 84439; 84443; 85025; 85379; 85610; 85730; 93005; 94010; 94640; 97166; 97530; G0378; J2916; J3360; J7030; U0002

== ENCOUNTER 2022-01-16 22:06 | Emergency (ER) | payer MEDICARE, OTHER ==
[~2022-01-16 22:06] MED LIST changes: +FOLIC ACID1 MG PO
[2022-01-16 23:17] LABS: BASOPHIL 0.2 % (0-2); EOSINOPHIL 1.5 % (0-7); HCT 34.6 % (42.0-52.0); HGB 10.5 g/dl (13.2-18.0); LYMPHOCYTE 11.5 % (15-48); MCH 28.4 pg (25.0-31.0); MCHC 30.3 g/dL (32.0-36.0); MCV 93.5 fL (78.0-100.0); MPV 8.9 fL (6.0-9.5); NEUTROPHIL 76.7 % (41-80); NRBC 0.3; PLT 365 K/uL (150-400); RDW 21.8 % (11.5-14.0); WBC 11.8 K/uL (4.0-10.5)
[2022-01-16 23:46] LABS: ALBUMIN 3.5 g/dL (3.4-5.0); BILIRUBIN - TOTAL 0.4 mg/dL (0.2-1.0); CREATININE 1.45 mg/dL (0.67-1.17); GLOBULIN (CALCULATION) 3.5 g/dL
[2022-01-17 00:09] LABS: CORONAVIRUS 2019 SARS-COV-2 NEGATIVE (NEGATIVE); INFLUENZA A NAA NEGATIVE (NEGATIVE)
[2022-01-17 00:38] LABS: BILIRUBIN NEGATIVE (NEGATIVE); BLOOD NEGATIVE Ery/uL (NEGATIVE); CLARITY CLEAR (CLEAR); COLOR YELLOW (YELLOW); GLUCOSE (U) NORMAL (NORMAL); LEUKOCYTES NEGATIVE Leu/uL (NEGATIVE); NITRITE NEGATIVE (NEGATIVE); PROTEIN NEGATIVE (NEGATIVE); UROBILINOGEN 0.2 mg/dL (0.2-1.0)
[2022-01-17 05:24] LABS: BUN/CREAT RATIO (CALC) 39.8 RATIO; CREATININE 0.93 mg/dL (0.67-1.17); POTASSIUM 3.1 mmol/L (3.5-5.1)
== END 2022-01-17 06:05 | disposition home or self-care (01) ==
LOC: FER 22:06
PROVIDERS: Emergency Medicine
DX: R55 Syncope and collapse (principal); E86.0 Dehydration; I11.0 Hypertensive heart disease with heart failure; I50.9 Heart failure, unspecified; J44.9 Chronic obstructive pulmonary disease, unspecified; E11.9 Type 2 diabetes mellitus without complications; Z20.822 Contact with and (suspected) exposure to COVID-19; Z28.310 Unvaccinated for COVID-19
CPT/HCPCS: 36415; 70450; 71250; 72125; 72128; 72131; 80048; 80053; 81003; 83880; 84145; 84484; 85025; 93005; J3480; J7030; U0002

== ENCOUNTER 2022-01-27 11:34 | Inpatient (IN) | payer MEDICARE, OTHER ==
[~2022-01-27] VITALS: Ht 175.3 cm; Wt 124.9 kg
[2022-01-27 12:11] LABS: BASOPHIL 0.1 % (0-2); EOSINOPHIL 1.8 % (0-7); HCT 35.4 % (42.0-52.0); HGB 10.8 g/dl (13.2-18.0); LYMPHOCYTE 9.7 % (15-48); MCH 29.3 pg (25.0-31.0); MCHC 30.5 g/dL (32.0-36.0); MCV 95.9 fL (78.0-100.0); MONOCYTE 6.6 % (0-12); NEUTROPHIL 80.6 % (41-80); NRBC 0; PLT 338 K/uL (150-400); RBC 3.69 M/uL (4.70-6.00); RDW 22.2 % (11.5-14.0); WBC 8.9 K/uL (4.0-10.5)
[2022-01-27 12:31] LABS: LACTIC ACID 2.8 mmol/L (0.4-1.9)
[2022-01-27 12:36] LABS: ALBUMIN 2.8 g/dL (3.4-5.0); BILIRUBIN - TOTAL 0.6 mg/dL (0.2-1.0); BUN/CREAT RATIO (CALC) 25.2 RATIO; CREATININE 1.51 mg/dL (0.67-1.17); GLOBULIN (CALCULATION) 4.1 g/dL; POTASSIUM 4.1 mmol/L (3.5-5.1); TOTAL PROTEIN 6.9 g/dL (6.4-8.2)
[2022-01-27 12:55] LABS: CORONAVIRUS 2019 SARS-COV-2 NEGATIVE (NEGATIVE); INFLUENZA A NAA NEGATIVE (NEGATIVE)
[2022-01-27 15:48] LABS: BILIRUBIN NEGATIVE (NEGATIVE); BLOOD NEGATIVE Ery/uL (NEGATIVE); CLARITY CLEAR (CLEAR); COLOR YELLOW (YELLOW); GLUCOSE (U) NORMAL (NORMAL); LEUKOCYTES NEGATIVE Leu/uL (NEGATIVE); NITRITE NEGATIVE (NEGATIVE); PROTEIN NEGATIVE (NEGATIVE); UROBILINOGEN 0.2 mg/dL (0.2-1.0); pH 6.5 (5.0-9.0)
[2022-01-27] MEDS ORDERED: FLEXERIL5 MG PO (16:19)
[2022-01-27] MEDS ORDERED: PROTONIX 40MG T40 MG PO (16:23)
[2022-01-27] MEDS ORDERED: UROCIT-K10 MEQ PO (16:52)
[2022-01-27] MEDS ORDERED: XARELTO15 MG PO (21:22)
[2022-01-28 06:32] LABS: BASOPHIL 0.1 % (0-2); EOSINOPHIL 0 % (0-7); HCT 35.1 % (42.0-52.0); HGB 10.7 g/dl (13.2-18.0); LYMPHOCYTE 6.6 % (15-48); MCH 29.4 pg (25.0-31.0); MCHC 30.5 g/dL (32.0-36.0); MCV 96.4 fL (78.0-100.0); MONOCYTE 2.4 % (0-12); MPV 9.6 fL (6.0-9.5); NEUTROPHIL 89.8 % (41-80); NRBC 0; PLT 299 K/uL (150-400); RBC 3.64 M/uL (4.70-6.00); RDW 21.2 % (11.5-14.0)
[2022-01-28 06:59] LABS: BUN/CREAT RATIO (CALC) 30.1 RATIO; CREATININE 1.03 mg/dL (0.67-1.17); MAGNESIUM 2.4 mg/dL (1.8-2.4)
[2022-01-29 06:15] LABS: BASOPHIL 0.1 % (0-2); EOSINOPHIL 0.1 % (0-7); HCT 34.1 % (42.0-52.0); HGB 10.1 g/dl (13.2-18.0); LYMPHOCYTE 6.4 % (15-48); MCHC 29.6 g/dL (32.0-36.0); MONOCYTE 7.8 % (0-12); MPV 9.4 fL (6.0-9.5); NEUTROPHIL 84.8 % (41-80); NRBC 0; PLT 313 K/uL (150-400); RBC 3.48 M/uL (4.70-6.00); RDW 21.1 % (11.5-14.0); RETICULOCYTE COUNT 5.6 % (1.0-2.0)
[2022-01-29 06:31] LABS: IRON % SATURATION 10.7 %SAT (20-50)
[2022-01-29 07:16] LABS: BUN/CREAT RATIO (CALC) 29.4 RATIO; C-REACTIVE PROTEIN 1.8 mg/dL (<=0.90); CREATININE 1.02 mg/dL (0.67-1.17); FOLIC ACID (SERUM) 34.1 ng/mL (8.6-58.9); MAGNESIUM 2.5 mg/dL (1.8-2.4); PHOSPHORUS 2.7 mg/dL (2.6-4.7); POTASSIUM 4.5 mmol/L (3.5-5.1)
--- NOTE | 2022-01-30 12:02 | NUR ---
01/30/22 Mr. Iraheta and his son, Shawn Iraheta Jr. co-own their house. Mr. Iraheta's (son) girlfriend, Nanci Penny and her 8 y/o child, also live in the home. - Chery Pires, [facility] provides Primary care. - Mr. Iraheta has 02 at 3 L, portable, C-PAP, lift chair, 3in1, s. chair, rw, neb, and pulse-ox. He is not interested in SNF placement. A referral was made to [facility] per patient choice.
[2022-01-30 13:01] LABS: BASOPHIL 0.1 % (0-2); EOSINOPHIL 0 % (0-7); HCT 35.2 % (42.0-52.0); HGB 10.2 g/dl (13.2-18.0); LYMPHOCYTE 4.9 % (15-48); MCH 28.7 pg (25.0-31.0); MCV 99.2 fL (78.0-100.0); MPV 9.2 fL (6.0-9.5); NRBC 0; PLT 309 K/uL (150-400); RBC 3.55 M/uL (4.70-6.00); RDW 20.5 % (11.5-14.0); WBC 8.8 K/uL (4.0-10.5)
[2022-01-30 13:02] LABS: NEUTROPHIL 90.2 % (41-80)
[2022-01-30 14:37] LABS: BUN/CREAT RATIO (CALC) 31.8 RATIO; CREATININE 0.85 mg/dL (0.67-1.17); MAGNESIUM 2.5 mg/dL (1.8-2.4); POTASSIUM 4.6 mmol/L (3.5-5.1)
[2022-01-31 05:47] LABS: BASOPHIL 0.1 % (0-2); EOSINOPHIL 0.1 % (0-7); HCT 35.7 % (42.0-52.0); HGB 10.5 g/dl (13.2-18.0); LYMPHOCYTE 11.5 % (15-48); MCHC 29.4 g/dL (32.0-36.0); MCV 98.6 fL (78.0-100.0); MONOCYTE 9.6 % (0-12); MPV 9.2 fL (6.0-9.5); NEUTROPHIL 77.6 % (41-80); NRBC 0; PLT 337 K/uL (150-400); RBC 3.62 M/uL (4.70-6.00); RDW 20.4 % (11.5-14.0)
[2022-01-31 06:13] LABS: BUN/CREAT RATIO (CALC) 29.1 RATIO; CREATININE 1.03 mg/dL (0.67-1.17); MAGNESIUM 2.2 mg/dL (1.8-2.4)
--- NOTE | 2022-01-31 14:09 | NUR ---
01/31 [facility] reports patient to be current with [facility]. [facility] was informed of admission and discharge
== END 2022-01-31 16:18 | disposition home health service (06) | DRG 291 ==
LOC: FER 11:34 → FTCU 15:02
PROVIDERS: Emergency Medicine; Nurse Practitioner Acute Care; ADMIT Internal Medicine
DX: I13.0 Hypertensive heart and chronic kidney disease with heart failure and stage 1 through stage 4 chronic kidney disease, or unspecified chronic kidney disease (principal); I50.33 Acute on chronic diastolic (congestive) heart failure; J96.21 Acute and chronic respiratory failure with hypoxia; S32.039A Unspecified fracture of third lumbar vertebra, initial encounter for closed fracture; J44.1 Chronic obstructive pulmonary disease with (acute) exacerbation; N17.9 Acute kidney failure, unspecified; E87.1 Hypo-osmolality and hyponatremia; E66.2 Morbid (severe) obesity with alveolar hypoventilation; Z68.41 Body mass index [BMI] 40.0-44.9, adult; J98.11 Atelectasis; Z20.822 Contact with and (suspected) exposure to COVID-19; L89.322 Pressure ulcer of left buttock, stage 2; L89.312 Pressure ulcer of right buttock, stage 2; W19.XXXA Unspecified fall, initial encounter; I25.10 Atherosclerotic heart disease of native coronary artery without angina pectoris; I45.10 Unspecified right bundle-branch block; F39 Unspecified mood [affective] disorder; I87.2 Venous insufficiency (chronic) (peripheral); E87.8 Other disorders of electrolyte and fluid balance, not elsewhere classified; E11.65 Type 2 diabetes mellitus with hyperglycemia; E78.5 Hyperlipidemia, unspecified; K21.9 Gastro-esophageal reflux disease without esophagitis; F32.A Depression, unspecified; N18.9 Chronic kidney disease, unspecified; M51.34 Other intervertebral disc degeneration, thoracic region; M51.36 Other intervertebral disc degeneration, lumbar region; D63.1 Anemia in chronic kidney disease; Z98.1 Arthrodesis status; Z86.711 Personal history of pulmonary embolism; Z79.899 Other long term (current) drug therapy; Z90.49 Acquired absence of other specified parts of digestive tract; Z86.16 Personal history of COVID-19; I25.2 Old myocardial infarction; Z87.891 Personal history of nicotine dependence; Z85.048 Personal history of other malignant neoplasm of rectum, rectosigmoid junction, and anus; Z82.49 Family history of ischemic heart disease and other diseases of the circulatory system; Z79.84 Long term (current) use of oral hypoglycemic drugs; Z79.01 Long term (current) use of anticoagulants; Z99.81 Dependence on supplemental oxygen
CPT/HCPCS: 36415; 36600; 70450; 71045; 71250; 72131; 73610; 80048; 80053; 80061; 81003; 82550; 82607; 82746; 82803; 82962; 83036; 83540; 83550; 83605; 83615; 83735; 83880; 84100; 84145; 84484; 85025; 85730; 86140; 87040; 87088; 93005; 94010; 94640; 94660; 94664; 97116; 97163; 97167; 97530; 97530-GP; 97535; J0456; J0696; J1940; J2270; J2405; J2543; J2916; J2930; J3420; J7050; U0002

== ENCOUNTER 2022-02-11 09:10 | Emergency (ER) | payer MEDICARE, OTHER ==
[~2022-02-11 09:10] MED LIST changes: +FLEXERIL5 MG PO; +PROTONIX 40MG T40 MG PO; +UROCIT-K10 MEQ PO
[2022-02-11 10:44] LABS: BASOPHIL 0.1 % (0-2); EOSINOPHIL 1.2 % (0-7); HCT 36.2 % (42.0-52.0); HGB 11.4 g/dl (13.2-18.0); LYMPHOCYTE 6.8 % (15-48); MCH 29.8 pg (25.0-31.0); MCHC 31.5 g/dL (32.0-36.0); MCV 94.8 fL (78.0-100.0); MONOCYTE 5.8 % (0-12); MPV 9.1 fL (6.0-9.5); NEUTROPHIL 84.8 % (41-80); NRBC 0; PLT 299 K/uL (150-400); RBC 3.82 M/uL (4.70-6.00); RDW 19.7 % (11.5-14.0); WBC 12.7 K/uL (4.0-10.5)
[2022-02-11 11:10] LABS: ALBUMIN 3.3 g/dL (3.4-5.0); BILIRUBIN - TOTAL 0.5 mg/dL (0.2-1.0); CREATININE 1.24 mg/dL (0.67-1.17); GLOBULIN (CALCULATION) 2.9 g/dL; POTASSIUM 3.2 mmol/L (3.5-5.1); TOTAL PROTEIN 6.2 g/dL (6.4-8.2)
[2022-02-11 12:33] LABS: BILIRUBIN NEGATIVE (NEGATIVE); BLOOD NEGATIVE Ery/uL (NEGATIVE); CLARITY CLEAR (CLEAR); COLOR YELLOW (YELLOW); GLUCOSE (U) NORMAL (NORMAL); LEUKOCYTES NEGATIVE Leu/uL (NEGATIVE); NITRITE NEGATIVE (NEGATIVE); PROTEIN NEGATIVE (NEGATIVE); UROBILINOGEN 0.2 mg/dL (0.2-1.0)
[2022-02-11 12:40] LABS: AMPHETAMINES NEGATIVE (NEGATIVE); BARBITURATES NEGATIVE (NEGATIVE); ECSTASY (MDMA) NEGATIVE (NEGATIVE); MARIJUANA (THC) NEGATIVE (NEGATIVE); METHADONE NEGATIVE (NEGATIVE); OPIATES NEGATIVE (NEGATIVE); OXYCODONE POSITIVE (NEGATIVE)
== END 2022-02-11 12:25 | disposition other institution (70) ==
LOC: FER 09:10
PROVIDERS: Emergency Medicine
DX: S41.112A Laceration without foreign body of left upper arm, initial encounter (principal); I13.0 Hypertensive heart and chronic kidney disease with heart failure and stage 1 through stage 4 chronic kidney disease, or unspecified chronic kidney disease; E11.22 Type 2 diabetes mellitus with diabetic chronic kidney disease; N18.9 Chronic kidney disease, unspecified; I50.9 Heart failure, unspecified; E78.5 Hyperlipidemia, unspecified; J44.9 Chronic obstructive pulmonary disease, unspecified; E66.01 Morbid (severe) obesity due to excess calories; Z28.310 Unvaccinated for COVID-19; Z99.81 Dependence on supplemental oxygen; Z86.718 Personal history of other venous thrombosis and embolism; Z79.01 Long term (current) use of anticoagulants; Z79.899 Other long term (current) drug therapy; W05.0XXA Fall from non-moving wheelchair, initial encounter
CPT/HCPCS: 36415; 36600; 70450; 71250; 72131; 80053; 80305; 81003; 82550; 82803; 83605; 84145; 85025; 87040; 93005; J1170; J7040

== ENCOUNTER 2022-03-17 23:54 | Emergency (ER) | payer MEDICARE, OTHER ==
[2022-03-18 01:40] LABS: BILIRUBIN NEGATIVE (NEGATIVE); BLOOD NEGATIVE Ery/uL (NEGATIVE); CLARITY CLEAR (CLEAR); COLOR YELLOW (YELLOW); GLUCOSE (U) NORMAL (NORMAL); LEUKOCYTES NEGATIVE Leu/uL (NEGATIVE); NITRITE POSITIVE (NEGATIVE); PROTEIN NEGATIVE (NEGATIVE); SPECIFIC GRAVITY 1.015 (1.001-1.030); UROBILINOGEN 0.2 mg/dL (0.2-1.0)
[2022-03-18 02:04] LABS: URINARY RBC RARE
[2022-03-18 02:05] LABS: BACTERIA 1+; RENAL EPITHELIAL CELLS RARE
[2022-03-18 03:26] LABS: ALBUMIN 2.8 g/dL (3.4-5.0); BILIRUBIN - TOTAL 0.4 mg/dL (0.2-1.0); CREATININE 1.06 mg/dL (0.67-1.17); GLOBULIN (CALCULATION) 3.1 g/dL; POTASSIUM 3.5 mmol/L (3.5-5.1); TOTAL PROTEIN 5.9 g/dL (6.4-8.2)
[2022-03-18 03:30] LABS: INR 2.68 (0.9-1.2); PROTHROMBIN TIME 27.5 SECONDS (11.9-13.9); PTT 43.6 SECONDS (24.9-34.6)
[2022-03-18 03:38] LABS: BASOPHIL 0.1 % (0-2); EOSINOPHIL 5.5 % (0-7); HCT 23.4 % (42.0-52.0); HGB 6.8 g/dl (13.2-18.0); LYMPHOCYTE 14.9 % (15-48); MCH 27.9 pg (25.0-31.0); MCHC 29.1 g/dL (32.0-36.0); MCV 95.9 fL (78.0-100.0); MONOCYTE 10.3 % (0-12); MPV 10.1 fL (6.0-9.5); NEUTROPHIL 68.1 % (41-80); NRBC 0.5; PLT 409 K/uL (150-400); RBC 2.44 M/uL (4.70-6.00); RDW 17.8 % (11.5-14.0); WBC 8.8 K/uL (4.0-10.5)
[2022-03-18 05:01] LABS: CORONAVIRUS 2019 SARS-COV-2 NEGATIVE (NEGATIVE); INFLUENZA A NAA NEGATIVE (NEGATIVE)
== END 2022-03-18 07:17 | disposition other institution (70) ==
LOC: FER 23:54
PROVIDERS: Emergency Medicine
DX: M54.50 Low back pain, unspecified (principal); N39.0 Urinary tract infection, site not specified; K92.2 Gastrointestinal hemorrhage, unspecified; R33.9 Retention of urine, unspecified; I10 Essential (primary) hypertension; I25.10 Atherosclerotic heart disease of native coronary artery without angina pectoris; J44.9 Chronic obstructive pulmonary disease, unspecified; E11.9 Type 2 diabetes mellitus without complications; G20 Parkinson's disease; Z20.822 Contact with and (suspected) exposure to COVID-19; Z79.84 Long term (current) use of oral hypoglycemic drugs; Z79.4 Long term (current) use of insulin; Z79.01 Long term (current) use of anticoagulants; Z79.899 Other long term (current) drug therapy
CPT/HCPCS: 36415; 36430; 80053; 81001; 85025; 85610; 85730; 87076; 87088; 87186; 96372; J0696; J1170; P9016; U0002

== ENCOUNTER 2022-04-04 23:27 | Emergency (ER) | payer MEDICARE, OTHER ==
[2022-04-05 00:22] LABS: BASOPHIL 0.1 % (0-2); EOSINOPHIL 3.4 % (0-7); HGB 9.6 g/dl (13.2-18.0); LYMPHOCYTE 14.7 % (15-48); MCH 27.1 pg (25.0-31.0); MCHC 29.1 g/dL (32.0-36.0); MCV 93.2 fL (78.0-100.0); MONOCYTE 9.6 % (0-12); MPV 9.6 fL (6.0-9.5); NEUTROPHIL 71.6 % (41-80); NRBC 0; PLT 454 K/uL (150-400); RBC 3.54 M/uL (4.70-6.00); RDW 18.6 % (11.5-14.0); WBC 8.9 K/uL (4.0-10.5)
[2022-04-05 00:25] LABS: BILIRUBIN NEGATIVE (NEGATIVE); BLOOD NEGATIVE Ery/uL (NEGATIVE); CLARITY CLEAR (CLEAR); COLOR YELLOW (YELLOW); GLUCOSE (U) NORMAL (NORMAL); LEUKOCYTES NEGATIVE Leu/uL (NEGATIVE); NITRITE NEGATIVE (NEGATIVE); PROTEIN NEGATIVE (NEGATIVE); UROBILINOGEN 0.2 mg/dL (0.2-1.0)
[2022-04-05 00:28] LABS: PTT 39.2 SECONDS (24.9-34.6)
[2022-04-05 00:31] LABS: ALBUMIN 3.6 g/dL (3.4-5.0); BILIRUBIN - TOTAL 0.8 mg/dL (0.2-1.0); BUN/CREAT RATIO (CALC) 17.5 RATIO; CREATININE 1.14 mg/dL (0.67-1.17); GLOBULIN (CALCULATION) 3.1 g/dL; POTASSIUM 3.4 mmol/L (3.5-5.1); TOTAL PROTEIN 6.7 g/dL (6.4-8.2)
[2022-04-05 00:33] LABS: BACTERIA TRACE; URINARY WBC RARE
== END 2022-04-05 06:16 | disposition home or self-care (01) ==
LOC: FER 23:27
PROVIDERS: Emergency Medicine
DX: K62.5 Hemorrhage of anus and rectum (principal); K57.90 Diverticulosis of intestine, part unspecified, without perforation or abscess without bleeding; I71.4 Abdominal aortic aneurysm, without rupture; I10 Essential (primary) hypertension; E11.9 Type 2 diabetes mellitus without complications; Z86.718 Personal history of other venous thrombosis and embolism; Z79.4 Long term (current) use of insulin; Z79.01 Long term (current) use of anticoagulants; Z28.310 Unvaccinated for COVID-19
CPT/HCPCS: 36415; 80053; 81001; 83690; 85025; 85610; 85730; Q9967

== ENCOUNTER 2022-04-14 14:04 | Day surgery (SDCO) | payer MEDICARE, OTHER ==
[~2022-04-14] VITALS: Ht 180.3 cm; Wt 113.0 kg
[2022-04-14 14:43] LABS: BASOPHIL 0.1 % (0-2); EOSINOPHIL 2.4 % (0-7); HCT 32.1 % (42.0-52.0); HGB 9.3 g/dl (13.2-18.0); MCH 26.2 pg (25.0-31.0); MCV 90.4 fL (78.0-100.0); MPV 9.1 fL (6.0-9.5); NEUTROPHIL 72.1 % (41-80); NRBC 0; PLT 400 K/uL (150-400); RBC 3.55 M/uL (4.70-6.00); WBC 8.4 K/uL (4.0-10.5)
[2022-04-14 14:49] LABS: INR 1.14 (0.9-1.2); PROTHROMBIN TIME 14.3 SECONDS (11.9-13.9); PTT 31.1 SECONDS (24.9-34.6)
[2022-04-14 15:19] LABS: ALBUMIN 3.5 g/dL (3.4-5.0); ALKALINE PHOSHATASE 202 U/L (46-116); ALT 19 U/L (16-63); AST 27 U/L (15-37); BILIRUBIN - TOTAL 0.7 mg/dL (0.2-1.0); BUN 17 mg/dL (7-18); BUN/CREAT RATIO (CALC) 15.9 RATIO; CHLORIDE 99 mmol/L (98-107); CO2 (BICARBONATE) 29 mmol/L (21-32); CREATININE 1.07 mg/dL (0.67-1.17); GLOBULIN (CALCULATION) 3.4 g/dL; GLUCOSE 90 mg/dL (74-106); POTASSIUM 3.4 mmol/L (3.5-5.1); TOTAL PROTEIN 6.9 g/dL (6.4-8.2)
[2022-04-14 15:43] LABS: CORONAVIRUS 2019 SARS-COV-2 NEGATIVE (NEGATIVE); INFLUENZA A NAA NEGATIVE (NEGATIVE)
[2022-04-14 16:17] LABS: BILIRUBIN NEGATIVE (NEGATIVE); BLOOD NEGATIVE Ery/uL (NEGATIVE); CLARITY CLEAR (CLEAR); COLOR YELLOW (YELLOW); GLUCOSE (U) NORMAL (NORMAL); LEUKOCYTES NEGATIVE Leu/uL (NEGATIVE); NITRITE NEGATIVE (NEGATIVE); PROTEIN NEGATIVE (NEGATIVE); SPECIFIC GRAVITY 1.015 (1.001-1.030); UROBILINOGEN 0.2 mg/dL (0.2-1.0)
[2022-04-14 16:24] LABS: AMPHETAMINES NEGATIVE (NEGATIVE); BARBITURATES NEGATIVE (NEGATIVE); ECSTASY (MDMA) NEGATIVE (NEGATIVE); MARIJUANA (THC) NEGATIVE (NEGATIVE); METHADONE NEGATIVE (NEGATIVE); OPIATES NEGATIVE (NEGATIVE); OXYCODONE POSITIVE (NEGATIVE)
[2022-04-14] MEDS ORDERED: LASIX80 MG PO (22:36)
[2022-04-14] MEDS ORDERED: LANTUS **100 UNITS/ SC ×2 (22:38)
[2022-04-14] MEDS ORDERED: TOPROL XL 50 MG50 MG PO (22:40)
[2022-04-14] MEDS ORDERED: NOVOLOG VI100 UNIT/1 SC (22:44)
[2022-04-14] MEDS ORDERED: PERCOCET 10-321 EACH PO (22:46)
[2022-04-14] MEDS ORDERED: VITAMIN D31250 MCG PO (22:54)
[2022-04-14] MEDS ORDERED: VITAMIN D31250 MC1 PO (22:55)
[2022-04-14] MEDS ORDERED: METFORMIN HCL500 MG PO (22:57)
[2022-04-15 07:40] LABS: HCT 31.5 % (42.0-52.0); HGB 8.9 g/dl (13.2-18.0); MCH 26.7 pg (25.0-31.0); MCHC 28.3 g/dL (32.0-36.0); MPV 8.9 fL (6.0-9.5); RBC 3.33 M/uL (4.70-6.00); RDW 18.3 % (11.5-14.0); RETICULOCYTE COUNT 1.8 % (1.0-2.0); WBC 8.5 K/uL (4.0-10.5)
[2022-04-15 07:58] LABS: IRON % SATURATION 6.3 %SAT (20-50)
[2022-04-15 08:02] LABS: MCV 94.6 fL (78.0-100.0)
[2022-04-15 08:22] LABS: BUN/CREAT RATIO (CALC) 13.5 RATIO; CREATININE 0.74 mg/dL (0.67-1.17); POTASSIUM 3.2 mmol/L (3.5-5.1)
[2022-04-15] MEDS ORDERED: NARCAN4 MG (11:02)
--- NOTE | 2022-04-15 12:13 | NUR ---
0930---PT AWAKE, STATES HE IS THIRSTY. ARGUING WITH STAFF, ROLLING IN BED. MD AT BEDSIDE, ORDERED DIET AND PO INTAKE. PT CALMED DOWN AND BECAME COOPERATIVE.
== END 2022-04-15 13:05 | disposition home health service (06) ==
LOC: FER 14:04 → FMS 16:53 → FER 17:22 → FMS 17:22
PROVIDERS: Internal Medicine; Nurse Practitioner Acute Care; ADMIT Allergy & Immunology Allergy
DX: T40.2X1A Poisoning by other opioids, accidental (unintentional), initial encounter (principal); R41.82 Altered mental status, unspecified; G92.9 Unspecified toxic encephalopathy; J96.10 Chronic respiratory failure, unspecified whether with hypoxia or hypercapnia; J44.9 Chronic obstructive pulmonary disease, unspecified; I13.0 Hypertensive heart and chronic kidney disease with heart failure and stage 1 through stage 4 chronic kidney disease, or unspecified chronic kidney disease; E11.22 Type 2 diabetes mellitus with diabetic chronic kidney disease; I50.32 Chronic diastolic (congestive) heart failure; N18.2 Chronic kidney disease, stage 2 (mild); E87.3 Alkalosis; E78.5 Hyperlipidemia, unspecified; E66.01 Morbid (severe) obesity due to excess calories; E11.40 Type 2 diabetes mellitus with diabetic neuropathy, unspecified; G47.33 Obstructive sleep apnea (adult) (pediatric); K21.9 Gastro-esophageal reflux disease without esophagitis; I82.409 Acute embolism and thrombosis of unspecified deep veins of unspecified lower extremity; F32.A Depression, unspecified; Z20.822 Contact with and (suspected) exposure to COVID-19; Z79.82 Long term (current) use of aspirin; Z79.4 Long term (current) use of insulin; Z79.899 Other long term (current) drug therapy; Z68.34 Body mass index [BMI] 34.0-34.9, adult
CPT/HCPCS: 36415; 36600; 70450; 71045; 80048; 80053; 80305; 81003; 82140; 82728; 82803; 83036; 83540; 83550; 83605; 83880; 84484; 85025; 85610; 85730; 93005; 94760; G0378; G0480; J2060; J2310; J7030; Q9967; U0002